=== PATIENT | male | born 1990 | race Caucasian/White ===

== ENCOUNTER 2020-10-26 15:13 | Emergency (ER) | payer BC, SELFPAY ==
--- NOTE | 2020-10-26 15:57 | PC.NURSE ---
Pt brought to triage in wheelchair by EMS. Pt got up, vomited on the floor and walked out of the department
== END 2020-10-26 15:30 | disposition left against medical advice (07) ==
DX: Z53.21 Procedure and treatment not carried out due to patient leaving prior to being seen by health care provider (principal)
CPT/HCPCS: 99199

== ENCOUNTER 2023-02-01 10:47 | Emergency (ER) | payer SELFPAY ==
[2023-02-01 11:14] VITALS: BP 136/86; PULSE 77; RESP 16; TEMP 37.2; O2SAT 99
--- NOTE | 2023-02-01 12:13 | ED.URI ---
HPI - URI/Sore Throat General Chief Complaint: Upper Respiratory Infection Stated Complaint: congested,both ears stopped up , left foot issue Time Seen by Provider: 02/01/23 12:05 Source: patient and RN notes reviewed Mode of arrival: ambulatory Limitations: no limitations History of Present Illness HPI Narrative: 33-year-old male presents with concern for ear pain, ears feeling clogged, nasal congestion for about a week. He denies taking any medications for that [id number]. He reports he also has a concern on his left foot, he had a foreign body piece of glass removed more than a month ago, reports it has healed fine but he feels like there might be still something in it. He denies redness, warmth, swelling. Reports occasional discomfort. MD elicited complaint: other (Ear pain) Related Data Allergies Allergy/AdvReac Type Severity Reaction Status Date / Time No Known Allergies Allergy Verified 02/01/23 12:10 Review of Systems Review of Systems: CONSTITUTIONAL: Denies malaise, chills, sweats, or fever. EYES: Denies visual changes, redness, or discharge. ENT: Reports rhinorrhea, congestion, sinus pain, otalgia CARDIOVASCULAR: Denies chest pain, palpitations, or edema. RESPIRATORY: Reports cough. Denies dyspnea. GASTROINTESTINAL: Denies abdominal pain, nausea, vomiting, diarrhea SKIN: Denies rash or itching. MUSCULOSKELETAL: Denies myalgia. NEUROLOGIC: Denies headache. All systems reviewed & are unremarkable except as noted in HPI and below PMFSH Comments At time of signature, agree with nursing past medical, surgical, social and family history. There is no relevant family history pertinent to the presenting complaint Exam Narrative: GENERAL: Well-appearing, well-nourished, and in no acute distress. HEAD: Normocephalic EYES: PERRLA, conjunctivae clear ENT: Nares clear, turbinates edematous and erythematous. Mucous membranes moist. Left tM pearly enamorado with dull light reflex, right TM erythematous and; no tragal tenderness. Oropharynx not erythematous without lesions. Tonsils not enlarged and without exudate, no drooling, no hoarseness, no trismus, uvula midline. NECK: Supple. No lymphadenopathy CHEST: Clear to auscultation, breath sounds equal. No wheezing, rhonchi, rales, or stridor. No respiratory distress, speaks in full sentences. HEART: Regular rate and rhythm. No murmur heard. SKIN: Warm, dry, no rash. Healed incision on the pedal left foot without surrounding erythema, edema, induration, tenderness, no palpable foreign body NEURO: Alert and oriented x3. PSYCH: Normal mood and affect Course Course Emergency Course: Patient is aware of diagnosis, understands and agrees to treatment plan. Anticipatory guidance given. Patient agrees to follow-up as directed and is aware of reasons to seek care at the emergency department. Portions of this record may have been created with voice recognition software Level of Care: Express Care Visit Vital Signs Vital signs: Vital Signs Temperature 98.9 F 02/01/23 11:14 Pulse Rate 77 02/01/23 11:14 Respiratory Rate 16 02/01/23 11:14 Blood Pressure 136/86 02/01/23 11:14 Pulse Oximetry 99 02/01/23 11:14 Oxygen Delivery Room Air 02/01/23 11:14 Temperature 98.9 F 02/01/23 11:14 Pulse Rate 77 02/01/23 11:14 Respiratory Rate 16 02/01/23 11:14 Blood Pressure 136/86 02/01/23 11:14 Pulse Oximetry 99 02/01/23 11:14 Oxygen Delivery Room Air 02/01/23 11:14 Reviewed. MDM - URI/Sore Throat MDM Narrative Medical decision making narrative: Differential diagnosis considered: Al virus, strep pharyngitis, allergic rhinitis, upper respiratory tract infection, sinusitis, rhinosinusitis, nasopharyngitis. viral pharyngitis, otitis media, otitis externa, pneumonia, bronchitis, viral cough syndrome, viral syndrome, and influenza. Exam findings show no acute concerns or changes; patient is non-toxic appearing and is in no distress. Valerie
== END 2023-02-01 12:20 | disposition home or self-care (01) ==
PROVIDERS: Emergency Provider Nurse Practitioner
DX: H66.91 Otitis media, unspecified, right ear (principal)
CPT/HCPCS: 99213; G0463